=== PATIENT | male | born 1940 | race Caucasian/White ===

== ENCOUNTER 2025-04-13 10:28 | Outpatient (AMB) | payer MEDICARE, SELFPAY ==
--- NOTE | 2025-04-13 10:45 | A.OFFPC_ITS ---
Vital Signs 04/13/25 10:52 Height 5 ft 4.96 in BP 138/52 L Blood Pressure Location Lt brachial Position Sitting Respiration 14 Pulse 73 Pulse Source Pulse Oximeter Temp 97.9 F Temp Source Oral Pulse Oximetry (%) 96 Oxygen Delivery Method Room Air Intake Visit Reasons: continuity of care Intake Note: New patient vistit. Pain in left leg and top of both feet. Symptoms stated in December 2024. Allergies Penicillins Allergy (Unknown, Verified 04/10/25 15:38) Rash Medication List - Last Reconciled 04/13/25 by Alda Tellez PA-C acetaminophen (Tylenol Extra Strength) 1,000 mg PO Q6H PRN albuterol sulfate 90 mcg/actuation (Ventolin HFA) 2 puffs inhalation Q4-6H PRN amlodipine 10 mg PO DAILY aspirin 81 mg PO DAILY atorvastatin (Lipitor) 40 mg PO DAILY chlorthalidone 25 mg PO DAILY cyanocobalamin (vitamin B-12) 1,000 mcg PO DAILY empagliflozin (Jardiance) 10 mg PO DAILY fluticasone furoate 50 mcg/actuation inhalation gabapentin 100 mg PO DAILY losartan 100 mg PO DAILY nitroglycerin 0.4 mg sublingual Q5M PRN omeprazole 40 mg PO DAILY Tobacco use date assessed: 04/13/25 Fall risk assessment: No Falls in past year Last assessed Fall Risk: 04/13/25 Dental Screening Dental Screen Date: 04/13/25 Did you have a dental visit in the last 12 months?: Yes Did you have a dental problem in the last 6 months where you did not have access to dental care?: No Was dental information given to patient?: Patient has dentist HPI continuity of care HPI Details Pt is an 85 y/o male who presents today to establish care. He is transferring from [facility]. Has a significant past medical history of CAD, s/p 2 stents approximately 15 years ago, CKD stage 3, controlled type 2 diabetes, hypertension, hyperlipidemia, lumbar radiculopathy, osteoporosis, peripheral neuropathy, renal cell cancer, thoracic compression fracture. CV: Hx of htn, dyslipidemia and s/p 2 stents. He states that his cholesterol has a has been well managed with the atorvastatin 40 mg. He is on amlodipine 10 mg daily, chlorthalidone 25 mg daily and losartan 100 mg daily. Compliant with aspirin. Has a prescription of nitro to use if needed but has not seen cardiology in many years. He states that he does not need to follow up with them he feels well. He just likes to keep a prescription of nitroglycerin on him in case something ever happened. Endo: well controlled t2dm. He has been a diabetic for 20 years. He is on Jardiance 10 mg and tolerates this well. Does not check blood sugars at home and does not want to. He previously was on metformin but did not like how it made him feel. Nephro: follows with Dr. Garcia for his chronic kidney disease Uro: Dr. Washington in [facility] for hx of right sided kidney cancer dx in 2020 and then in 2022 had treatment. Following in Jul for CT - no notes today regarding this MSK: In November he was shoveling his driveway and breaking up ice when he started develop low back pain radiating down the left leg. He states that since then he has had sharp shooting pains in his lower leg and foot. At night it is worse. It gets a lot better with walking around. Over the last few months he has seen urgent care centers and reports having an MRI of his spine. The MRI was consistent with multi degenerative changes of the lumbar spine most pronounced at L4-L5 with moderate spinal canal stenosis, moderate to severe left and moderate right foraminal stenosis with disc bulge. Patient states that he is supposed to be following with [facility] but has not yet seen them. He was waiting to get the MRI which was just done on March 28. He states that believe it or not he is starting to feel a lot better and not needing as much gabapentin. He is on gabapentin 200 mg at night, 100 mg twice during the day GI: GERD is controlled with the omeprazole 40 mg daily. States that about 15 years ago he had a colonoscopy and decided that he was done getting these. He would be open to a Cologuard. Believes he has also had an endoscopy., [facility], [facility] Surgical History (Updated 04/13/25 @ 11:30 by Alda Tellez PA-C) Status post coronary artery stent placement H/O biopsy of kidney Family History (Updated 04/10/25 @ 15:37 by Radha Colon CMA) Brother Diabetes Other Substance abuse Social History Patient Tobacco Use Status: Former Tobacco user (quit 50 years ago) Cigarette Packs Per Day: 0.5 Years Smoked: 7 Second Hand Smoke Exposure: No service: Yes Current occupational status: retired Cognitive needs: No Hearing needs: Yes Vision needs: No Questionnaire PHQ-9 Over the last 2 weeks, how often have you been bothered by any of the following problems? 1. Little interest or pleasure in doing things: not at all 2. Feeling down, depressed, or hopeless: not at all 3. Trouble falling or staying asleep, or sleeping too much: not at all 4. Feeling tired or having little energy: several days 5. Poor appetite or overeating: several days 6. Feeling bad about yourself - or that you are a failure or have let yourself or your family down: not at all 7. Trouble concentrating on things, such as reading the newspaper or watching television: not at all 8. Moving or speaking so slowly that other people could have noticed. Or the opposite - being so fidgety or restless that you have been moving around a lot more than usual: not at all 9. Thoughts that you would be better off or of hurting yourself in some way: not at all Total score: 2 Depression Screening Interpretation: Negative Depression Screening Done: Yes 63471 - PHQ-9 Billing: Yes Source: Developed by Drs. Barrie Brown, Norma Nagy, Real Druand and colleagues, with an educational felicitas from [employer]. Thrive Questionnaire I am a: Patient What is your living situation today?: I have a steady place to live Within the past 12 months, did the food you bought not last and you didn't have the money to get more?: Never true Within the past 12 months, did you worry whether your food would run out before you got money to buy more?: Never true Do you have trouble paying for medicines?: No Do you have trouble getting transportation to medical appointments?: No Do you have trouble paying your heating and electricity bill?: No Do you have trouble taking care of your child, family member or friend?: No Do you have trouble with day-to-day activities such as bathing, preparing meals, shopping, managing finances, etc.?: No Are you currently unemployed and looking for a job?: No Are you interested in more education?: No Please select the resources that you would like help with: None Currently or been in a relationship where the following occur: No concerns reported THRIVE Score: 0 AUDIT C Alcohol Use Questionnaire (AUDIT-C) 1. How often do you have a drink containing alcohol?: Never Total Score: 0 BYRON-7 AMB Questionnaire BYRON-7 Feeling nervous, anxious, or on edge: 0 = Not at all Not being able to stop or control worryin = Not at all Worrying too much about different things: 0 = Not at all Trouble relaxin = Not at all Being so restless that it is hard to sit still: 0 = Not at all Becoming easily annoyed or irritable: 0 = Not at all Feeling afraid as if something awful might happen: 0 = Not at all Total BYRON-7 score (0-4 normal; 5-9 mild; 10-14 moderate; 15-21 severe): 0 Source: Developed by Drs. Barrie Brown, Norma Nagy, Real Durand and colleagues, with an educational felicitas from [employer]. BYRON-7 Assessment Billing BYRON-7 Assessment Tool: BYRON-7 Assessment 48430 Physical exam (Primary Care) Vital Signs: Last Vital Signs Temp 97.9 F 04/13/25 10:52 Pulse 73 04/13/25 10:52 Resp 14 04/13/25 10:52 BP 138/52 L 04/13/25 10:52 Pulse Ox 96 04/13/25 10:52 Oxygen Delivery Method Room Air 04/13/25 10:52 Tobacco/Smoking Status: Tobacco use Status Tobacco use date assessed 04/13/25 04/13/25 10:58 Patient Tobacco Use Status Former Tobacco user (quit 50 04/13/25 10:58 years ago) PHQ-9: PHQ-9 Score PHQ-9: Total score 2 04/13/25 11:17 Depression Screening Interpretation: Negative Currently or been in a relationship where the following occur: No concerns reported Const Orientation/consciousness: patient oriented x3 HENMT Ears: hearing grossly normal bilaterally Neck Thyroid: Thyroid normal Lymphatic: no lymphadenopathy noted Resp Auscultation: clear to auscultation bilaterally Cardio Rate: regular rate Rhythm: regular rhythm Heart sounds: S1 normal heart sound present and S2 normal heart sound present GI Inspection: Yes normal to inspection Palpation (GI): Soft to palpation and Other GI palpation findings present (nontender, no cva tenderness) Auscultation: normoactive bowel sounds Rectal Exam - Male: Yes deferred Skin General skin exam: no rashes or lesions noted Neuro General: patient oriented x3, gait normal and no focal motor deficits Coding Level of Care Code New Pt Level 4 (93687) Complex EM visit Add On G2211 Diagnoses Lumbar radicular pain M54.16 Type 2 diabetes mellitus E11.9 HLD (hyperlipidemia) E78.5 HTN (hypertension) I10 Additional Codes PHQ-9 - 80949 - PHQ-9 Billing: Yes ([id number]) BYRON-7 Assessment Billing - BYRON-7 Assessment Tool: BYRON-7 Assessment [id number] ([id number]) Assessment & Plan Assessment & Plan (1) Lumbar radicular pain: Code(s): M54.16 - Radiculopathy, lumbar region Category: Medical Plan: On gabapentin. Currently feeling improved. Reviewed MRI with patient Referral to [facility] (2) Type 2 diabetes mellitus: Code(s): E11.9 - Type 2 diabetes mellitus without complications Category: Medical Plan: Labs ordered today He declines testing supplies. We did review signs and symptoms of hyper and hypoglycemia that would require emergent medical treatment. Continue Jardiance (3) HLD (hyperlipidemia): Code(s): E78.5 - Hyperlipidemia, unspecified Category: Medical Plan: Lipids and LFTs ordered. On atorvastatin and tolerating well. (4) HTN (hypertension): Code(s): I10 - Essential (primary) hypertension Category: Medical Plan: WNL. Continue current regimen Orders: Orders Comprehensive Met. Panel Today E11.9 - Type 2 diabetes mellitus without complications, E78.5 - Hyperlipidemia, unspecified, I10 - Essential (primary) hypertension, Z95.5 - Presence of coronary angioplasty implant and graft Complete Blood Count Auto Diff Today E11.9 - Type 2 diabetes mellitus without complications, E78.5 - Hyperlipidemia, unspecified, I10 - Essential (primary) hypertension, Z95.5 - Presence of coronary angioplasty implant and graft Lipid Panel Today E11.9 - Type 2 diabetes mellitus without complications, E78.5 - Hyperlipidemia, unspecified, I10 - Essential (primary) hypertension, Z95.5 - Presence of coronary angioplasty implant and graft TSH reflex Free T4 Today E11.9 - Type 2 diabetes mellitus without complications, E78.5 - Hyperlipidemia, unspecified, I10 - Essential (primary) hypertension, Z95.5 - Presence of coronary angioplasty implant and graft Hemoglobin A1c Today E11.9 - Type 2 diabetes mellitus without complications, E78.5 - Hyperlipidemia, unspecified, I10 - Essential (primary) hypertension, R73.01 - Impaired fasting glucose, Z95.5 - Presence of coronary angioplasty implant and graft Microalbumin, Random (w Creat) Today E11.9 - Type 2 diabetes mellitus without complications, E78.5 - Hyperlipidemia, unspecified, I10 - Essential (primary) hypertension, Z95.5 - Presence of coronary angioplasty implant and graft Prostate Specific Antigen Scr Today E11.9 - Type 2 diabetes mellitus without complications, E78.5 - Hyperlipidemia, unspecified, I10 - Essential (primary) hypertension, Z01.89 - Encounter for other specified special examinations Referrals Physiatry Referral M54.16 - Radiculopathy, lumbar region Cologuard Test E11.9 - Type 2 diabetes mellitus without complications, E78.5 - Hyperlipidemia, unspecified, I10 - Essential (primary) hypertension, Z12.11 - Encounter for screening for malignant neoplasm of colon, Z95.5 - Presence of coronary angioplasty implant and graft
[2025-04-13 10:52] VITALS: BP 138/52; PULSE 73; RESP 14; TEMP 36.6; O2SAT 96
--- OUTSIDE RECORDS SUMMARY | 2025-04-13 11:54 | XMS_ITS | Clinical Summary ---
Author Organization [facility] Address [address] [place] [phone] Phone Care Team Providers Care Recycle Driver Name Role Phone Erick Villar MD Primary Care Provider [phone] Allergies Active Allergy Reactions Criticality Noted Date Comments Penicillin G Other (see comments) 04/20/2024 Penicillins Rash Low 05/06/2021 Medications amLODIPine (NORVASC) 10 MG tablet Take 1 tablet by mouth 1 (one) time each day Active aspirin (Pat Aspirin EC Low Dose) 81 MG EC tablet Take 1 tablet by mouth 1 (one) time each day Active atorvastatin (LIPITOR) 40 MG tablet Take 40 mg by mouth 1 (one) time each day Active chlorthalidone 25 MG tablet Take 1 tablet by mouth 1 (one) time each day Active losartan (COZAAR) 50 MG tablet Take 50 mg by mouth 1 (one) time each day Active omeprazole (PriLOSEC) [address] capsule Take 1 capsule by mouth 1 (one) time each day Active gabapentin (NEURONTIN) 100 MG capsule TAKE 1 TO 2 CAPSULES BY MOUTH 3 TIMES A DAY NEEDED 01/03/2025 Active Jardiance 10 MG tablet every morning 11/16/2024 Activ e cyanocobalamin (VITAMIN B-12) 1000 MCG tablet Take 1,000 mcg by mouth 1 (one) time each day Active Active Problems Problem Noted Date Diagnosed Date Renal cell carcinoma 04/19/2024 Stage 3b chronic kidney disease 05/07/2021 Persistent proteinuria 05/07/2021 Essential (primary) hypertension 05/07/2021 Renal cell carcinoma <Right side> 05/07/2021 Osteoporosis 05/07/2021 Type 2 diabetes mellitus with diabetic nephropat hy 05/07/2021 Chronic kidney disease stage 3 05/06/2021 Diabetes mellitus 05/06/2021 Hypertensive disorder 05/06/2021 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 05/06 Renal disorder due to type 2 diabetes mellitus 0 05/06/2021 Encounters Date Type Department Care Team Description 01/11/2025 3:00 PM EDT Office Visit [facility] [address] [phone] Jah Garcia MD Stage 3 chronic kidney disease, not otherwise specified (HCC) (Primary Dx); Type 2 diabetes mellitus with diabetic nephropathy (HCC); Hypertensive nephrosclerosis; Microalbuminuria from Last 3 Months Family History Medical History Relation Comments Diabetes Sibling 1 Heart disease Sibling 2 Cancer Sibling 3 Breast Relation Status Comments Father Mother Sibling 1 Sibling 2 Sibling 3 Social History Tobacco Use Types Packs/Day Years Used Date Smoking Tobacco: Never Smokeless Tobacco: Never Tobacco Cessation:Counseling Given: Not Answered Alcohol Use Standard Drinks/Week Comments Yes 1 (1 standard drink = 0.6 oz pure alcohol) Alcoholic Drinks/day: 1-2 drinks per day Sex and Gender Information Value Date Recorded Sex Assigned at Not on file Legal Sex Male 4:58 PM EST Gender Identity Not on file Sexual Orientation Not on file Last Filed Vital Signs Vital Sign Reading Time Taken Comments Blood Pressure 125/56 01/11/2025 2:51 PM EDT Pulse 69 01/11/2025 2:51 PM EDT Temperature - - Respiratory Rate - - Oxygen Saturation - - Inhaled Oxygen Concentration - - Weight 72.6 kg (160 lb) 01/11/2025 2:51 PM EDT Height 165.1 cm (5' 5 ) 11/06/2020 12:00 PM EST Body Mass Index 26.63 11/06/2020 12:00 PM EST Plan of Treatment Upcoming Encounters Date Type Department Care Team (Late st Contact Info) Description 07/12/2025 4:15 PM EDT Office Visit [facility] [address] [phone] Jah Garcia MD [address] [phone] Health Maintenance Due Date Last Done Comments Diabetes: Ophthalmology Exam 11/25/2020 Diabetes: Pedal Pulse Checked 11/25/2020 Diabetes: Sensory Foot Exam 11/25/2020 Diabetes: Visual Foot Exam 11/25/2020 Diabetes: Hemoglobin A1C 01/28/2022 10/30/2021 Influenza Vaccine (Season Ended) 2025 07/05/2020, 07/14/2019 Pneumococcal Vaccine: 50+ Years Completed 10/06/2016, 07/23/2016, 06/26/2015 Pneumococcal Vaccine: Peds ( 0 to 5 Years) and At-Risk Patients (6 to 49 Years) Discontinued 10/06/2016, 07/23/2016, 06/26/2015 Hepatitis B Vaccine Aged Out No longe r eligible based on patient's age to complete this topic Procedures Procedure Name Priority Date/Time Associated Diagnosis Comments HEMOGLOBIN A1C Routine 10/30/2021 11:07 AM EST Stage 3b chronic kidney disease (HCC) Persistent proteinuria Essential (primary) hypertension Renal cell carcinoma <Right side> (HCC) Type 2 diabetes mellitus with diabetic nephropathy (HCC) Renal disorder due to type 2 diabetes mellitus <Diabetic nephropathy> (HCC) from Last 3 Months or Most Recently Relevant to Health Maintenance Results * (ABNORMAL) Hemoglobin A1c (10/30/2021 11:07 AM EST) Hemoglobin A1C 6.4(H) (4.0-5.6) % [facility] Comment: MONITORING: In known diabetic patients, hemoglobin A1c targets should be discussed with health care provider. DIAGNOSTIC USE: The [place] Diabetes Association (ADA) and the World Health Organization (WHO) recommend the use of HbA1c to diagnose diabetes using a threshold of 6.5%. Patients who have an HbA1c between 5.7% and 6.4% are considered at increased risk for developing diabetes in the future. CAUTION: Falsely low HbA1c results may be observed in patients with hemolytic anemia, homozygous forms of abnormal hemoglobin (e.g. SS, CC, SC), , recent blood loss or hemoglobin F greater than 7%. Fructosamine may be used as an alternate test in these cases. REFERENCE: ADA: Standards of Medical Care in Diabetes 2020, The Journal of Clinical and Applied Research and Education Volume 43, Supplement 1 Testing performed or reported by [facility], a Service of [facility], [address] [place] [id number] Mo Kerr MD, Warp Placer [facility]# [id number] Blood specimen (specimen) Venous blood / Unknown 10/30/2021 11:07 AM EST 10/30/2021 11:08 AM EST Ryan Azar MD LAB BLOOD ORDERABLES Magaly ledbetter Result [facility] from Last 3 Months or Most Recently Relevant to Health Maintenance Insurance [facility] Medicare [facility] Medicare Care Teams Recycle Driver Relationship Specialty Start Date End Date Erick Villar MD [address] [place] [address] [facility] - General 11/05/20
== END 2025-04-13 11:35 | disposition home or self-care (01) ==
LOC: HO.HMCFM 10:29
PROVIDERS: PCP Physician Assistant; Visit Provider Physician Assistant
DX: M54.16 Radiculopathy, lumbar region (principal); E11.9 Type 2 diabetes mellitus without complications; E78.5 Hyperlipidemia, unspecified; I10 Essential (primary) hypertension

== ENCOUNTER → 2025-04-13 10:28 | Outpatient (BNVA) | payer MEDICARE, SELFPAY | PROVIDERS: PCP Physician Assistant; Visit Provider Physician Assistant | DX: M54.16 Radiculopathy, lumbar region (principal); I10 Essential (primary) hypertension; E11.9 Type 2 diabetes mellitus without complications; E78.5 Hyperlipidemia, unspecified | CPT/HCPCS: 96127; 99202 ==

== ENCOUNTER 2025-06-28 08:04 | Outpatient (REF) | payer MEDICARE, SELFPAY ==
--- OUTSIDE RECORDS SUMMARY | 2025-06-28 08:25 | XMS_ITS | Encounter Summary ---
Author Organization [facility] Address [address] [place] [phone] Phone Care Team Providers Care Medical Coding Auditor Name Role Phone Erick Villar MD Primary Care Provider + Encounter Details Date Type Department Care Team (Late st Contact Info) Description 01/20/2023 Procedure Pass [facility], Ct Scan - [address] [address] Social History Tobacco Use Types Packs/Day Years Used Date Smoking Tobacco: Former Cigarettes 0.5 5 1 644 - 1960 Smokeless Tobacco: Never Alcohol Use Standard Drinks/Week Comments Not Currently 14 (1 standard drink = 0.6 oz pu re alcohol) Intimate Partner Violence Answer Date R ecorded Are you denied basic needs s uch as food, clothing, or medical care? No 01/20/2023 In the past 12 months have y ou been in a relationship with a person who hurts, threatens, or tries to control you? No 01/20/2023 Are you denied basic needs s uch as food, clothing, or medical care? No 01/20/2023 In the past 12 months have y ou been in a relationship with a person who hurts, threatens, or tries to control you? No 01/20/2023 Sex and Gender Information Value Date Recorded Sex Assigned at Not on file Legal Sex Male 10:51 AM EST Gender Identity Not on file Sexual Orientation Not on file documented as of this encounter Plan of Treatment Not on file documented as of this encounter Visit Diagnoses Not on filedocumented in this encounter Care Teams Medical Coding Auditor Relationship Specialty Start Date End Date Erick Villar MD [address] [place] [id number] PCP - General Internal Medicine 11/11/22 documented as of this encounter Additional Source Comments The information contained in this document represents components of the legal health record. It is not the complete legal health record.[facility]
--- OUTSIDE RECORDS SUMMARY | 2025-06-28 08:25 | XMS_ITS | Encounter Summary ---
Author Organization [facility] Address [address] [place] [phone] Phone Care Team Providers Care Certified Pediatric Nurse Practitioner Name Role Phone Erick Villar MD Primary Care Provider + Encounter Details Date Type Department Care Team ([facility] Contact Info) Description 01/20/2023 Procedure Pass [facility] [address] [place] [address] Social History Tobacco Use Types Packs/Day Years Used Date Smoking Tobacco: Former Cigarettes 0.5 5 1 954 - 1959 Smokeless Tobacco: Never Alcohol Use [...] on filedocumented in this encounter Care Teams Certified Pediatric Nurse Practitioner Relationship Specialty Start Date End Date Erick Villar MD [address] [place] [address] [phone] PCP - General Internal Medicine 11/11/22 documented as of this encounter Additional Source Comments The information contained in this document represents components of the legal health record. It is not the complete legal health record.[facility]
--- OUTSIDE RECORDS SUMMARY | 2025-06-28 08:26 | XMS_ITS | Clinical Summary ---
Author Organization [facility] Address [address] [place] [phone] Phone Care Team Providers Care Bullet Slug Casting Machine Operator Name Role Phone Erick Villar MD Primary Care Provider [phone] Allergies Active Allergy Reactions Criticality Noted Date [...] to type 2 diabetes mellitus 0 05/06/2021 Family History Medical History Relation Comments Diabetes [...] Office Visit [facility] [address] [place] [phone] Jah Garcia MD [address] [phone] Health Maintenance Due Date Last Done Comments Diabetes: Ophthalmology Exam 11/25/2020 Diabetes: Pedal Pulse Checked 11/25/2020 Diabetes: Sensory Foot Exam 11/25/2020 Diabetes: Visual Foot Exam 11/25/2020 Diabetes: Hemoglobin A1C 01/28/2022 10/30/2021 Influenza Vaccine (#1) 2025 0, 07/14/2019 Pneumococcal Vaccine: 50+ Years Completed 10/06/2016, [...] AM EST) Hemoglobin A1C 6.4(H) (4.0-5.6) % [facility] Comment: MONITORING: In known diabetic patients, hemoglobin A1c targets should be discussed with health care provider. DIAGNOSTIC USE: The [place] Diabetes Association (ADA) and the World Health [...] Supplement 1 Testing performed or reported by [facility], a Service of [facility], [address] [place] [id number] Mo Kerr MD, Licensed Bondsman [facility]# [id number] Blood specimen (specimen) Venous blood / Unknown 10/30/2021 11:07 AM EST 10/30/2021 11:08 AM EST us Ryan Papamarkakis MD LAB BLOOD ORDERABLES Magaly anatoly Result [facility] from Last 3 Months or Most Recently Relevant to Health Maintenance Insurance [facility] Medicare [facility] Medicare Care Teams Bullet Slug Casting Machine Operator Relationship Specialty Start Date End Date Erick Villar MD [address] [place] [address] PCP - General 11/05/20
--- OUTSIDE RECORDS SUMMARY | 2025-06-28 08:26 | XMS_ITS | Clinical Summary ---
Author Organization [facility] Address [address] [place] [address] Phone Care Team Providers Care Check Grader Name Role Phone Erick Villar MD Primary Care Provider + Allergies Active Allergy Reactions Criticality Noted Date Comments Penicillins 11/21/2022 Medications omeprazole (PRILOSEC) 40 MG capsule Take 40 mg by mouth daily. Active atorvastatin (LIPITOR) 10 MG tablet Take 10 mg by mouth daily. Active amLODIPine (NORVASC) 10 MG tablet Take 10 mg by mouth daily. Active chlorthalidone (HYGROTON) 25 MG tablet Take 25 mg by mouth daily. Active aspirin 81 MG EC tablet Take 81 mg by mouth daily. Active losartan (COZAAR) 50 MG tablet Take 50 mg by mouth daily. Active albuterol 90 mcg/actuation inhaler Inhale 2 puffs into the lungs every 6 (six) hours as needed for wheezing. Active Social History Tobacco Use Types Packs/Day Years Used Date Smoking Tobacco: Former Cigarettes 0.5 5 1 954 - 1959 Smokeless Tobacco: Never Tobacco Cessation:Counseling Given: Not Answered Alcohol Use Standard Drinks/Week Comments Not Currently 14 (1 standard drink = 0.6 oz pu re alcohol) Education Answer Date Recorded Are you interested in more education? Not on pedro e 02/21/2023 Are you concerned about learning? Not on file 02/21/2023 No 02/21/2023 No 02/21/2023 Digital Access Answer Date Recorded No 03/22/2023 No 03/22/2023 No 03/22/2023 Reliable internet access at home? Not on file 03/22/2023 Device with a working camera? Not on file Intimate Partner Violence Answer Date R ecorded [...] Sign Reading Time Taken Comments Blood Pressure 144/57 01/20/2023 3:52 PM EDT Pulse 47 01/20/2023 2:56 PM EDT Temperature 36 C (96.8 F) 01/20/2023 2:00 PM EDT Respiratory Rate 13 01/20/2023 2:56 PM EDT Oxygen Saturation 98% 01/20/2023 2:56 PM EDT Inhaled Oxygen Concentration - - Weight 74.8 kg (165 lb) 01/15/2023 3:58 PM EDT Height 165.1 cm (5' 5 ) 01/15/2023 3:58 PM EDT Body Mass Index 27.46 01/15/2023 3:58 PM EDT Plan of Treatment Health Maintenance Due Date Last Done Comments DEPRESSION SCREENING 1952 RSV VACCINE (1 - 1-dose 75+ series) 2014 CREATININE LEVEL 12/01/2023 12/01/2022 POTASSIUM LEVEL 12/01/2023 12/01/2022 COVID-19 VACCINE ( season) 2024 07/18/2022, 01/23/2022, 07/23/2021, Additional history exists Adult Td,Tdap Booster 11/27/2031 11/27/2021, 010 PNEUMOCOCCAL VACCINES (50+ years) Completed 10/06/2016, 07/23/2016, 06/26/2015 ZOSTER VACCINES Completed 09/01/2019, 02/24, 12/23/2017 HEPATITIS A VACCINES Aged Out No long er eligible based on patient's age to complete this topic HIB VACCINES Aged Out No longer eligi ble based on patient's age to complete this topic MENINGOCOCCAL VACCINES (ACWY) Aged Out No longer eligible based on patient's age to complete this topic MENINGOCOCCAL VACCINES (B) Aged Out N o longer eligible based on patient's age to complete this topic Medical Devices Implanted Type Area Equipment Specialist Device Identifier Shelf Expiration Date Model / Serial / Lot Lens-12/02/2018 Implanted:2018 (Quantity not on file) Lens Stent Implanted:Qty: 2 Stent Heart Procedures Procedure Name Priority Date/Time Associated Diagnosis Comments BASIC METABOLIC PANEL STAT 12/01/2022 9:35 AM EST from Last 3 Months or Most Recently Relevant to Health Maintenance Results * (ABNORMAL) Basic metabolic panel (12/01/2022 9:35 AM EST) SODIUM 140 133 - 146 mmol/L [facility] CHLORIDE 106 96 - 108 mmol/L [facility] POTASSIUM 4.2 3.3 - 5.1 mmol/L [facility] CO2 24 21 - 35 mmol/L [facility] BUN 31(H) 6 - 19 mg/dL [facility] CREATININE 1.60(H) 0.5 - 1.5 mg/dL [facility] GLUCOSE 139(H) 70 - 99 mg/dL [facility] CALCIUM 9.6 8.4 - 10.3 mg/dL [facility] EGFR 42(L) >59 mL/min/1.7 3m2 [facility] Comment:Estimated glomerular filtration rate calculated using the CKD-EPI refit equation. ANION GAP 14 10 - 20 mmol/L [facility] Blood 12/01/2022 9:35 AM EST 12/01/2022 9:43 AM EST us Ermias Chakraborty MD LAB BLOOD ORDERABLES Final Result [facility] [address] [place] [address] from Last 3 Months or Most Recently Relevant to Health Maintenance [place] [address] [place] [address] [place] [address] [place] [address] [place] [address] MEDICARE REPLACEMENT [facility] MEDICARE REPLACEMENT [facility] MEDICARE REPLACEMENT [facility] MEDICARE REPLACEMENT Advance Directives For more information, please contact: [phone] (9AM - 5PM Pamela/[facility], Thursday-Thursday) Documents on File Type Date Recorded Patient Script Coordinator Expl anation Healthcare Proxy 12/02/2022 12:46 PM Care Teams Check Grader Relationship Specialty Start Date End Date Erick Villar MD [address] [place] [phone] PCP - General Internal Medicine 11/11/22 Additional Source Comments The information contained in this document represents components of the legal health record. It is not the complete legal health record.[facility]
--- OUTSIDE RECORDS SUMMARY | 2025-06-28 08:26 | XMS_ITS | Encounter Summary ---
Author Organization [facility] Address [address] [place] [address] Phone Care Team Providers Care Ramp Service Employee Name Role Phone Erick Villar MD Primary Care Provider + Encounter Details Date Type Department Care Team ([facility] st Contact Info) Description 11/12/2022 Procedure Pass [facility] [address] [place] [address] Social History Tobacco Use Types Packs/Day Years Used Date Smoking Tobacco: Former Cigarettes 0.5 5 1 414 1957 Smokeless Tobacco: Never Alcohol Use Standard Drinks/Week Comments Not Currently 14 (1 standard drink = 0.6 oz pu re alcohol) Sex and Gender Information Value Date Recorded Sex Assigned at Not on file Legal Sex Male 10:51 AM EST Gender Identity Not on file Sexual Orientation Not on file documented as of this encounter Plan of Treatment Not on file documented as of this encounter Visit Diagnoses Not on filedocumented in this encounter Care Teams Ramp Service Employee Relationship Specialty Start Date End Date Erick Villar MD [address] [place] [phone] PCP - General Internal Medicine 11/11/22 documented as of this encounter Additional Source Comments The information contained in this document represents components of the legal health record. It is not the complete legal health record.[facility]
--- OUTSIDE RECORDS SUMMARY | 2025-06-28 08:26 | XMS_ITS | Encounter Summary ---
Author Organization [facility] Address [address] [place] [phone] Phone Care Team Providers Care Vendor Management Associate Name Role Phone Erick Villar MD Primary Care Provider + Encounter Details Date Type Department Care Team ([facility] st Contact Info) Description 12/01/2022 Procedure Pass [facility] [address] [place] [address] Social History Tobacco Use Types Packs/Day Years Used Date Smoking Tobacco: Former Cigarettes 0.5 5 1 474 1955 Smokeless Tobacco: Never Alcohol Use Standard Drinks/Week [...] on filedocumented in this encounter Care Teams Vendor Management Associate Relationship Specialty Start Date End Date Erick Villar MD [address] [place] [phone] PCP - General Internal Medicine 11/11/22 documented as of this encounter Additional Source Comments The information contained in this document represents components of the legal health record. It is not the complete legal health record.[facility]
--- OUTSIDE RECORDS SUMMARY | 2025-06-28 08:26 | XMS_ITS | Encounter Summary ---
Author Organization [facility] Address [address] [place] [address] Phone Care Team Providers Care Missile Inspector Preflight Name Role Phone Erick Villar MD Primary Care Provider + Encounter Details Date Type Department Care Team (Late st Contact Info) Description 05/12/2024 Procedure Pass [facility], Ct Scan - [address] [address] Social History Tobacco Use Types Packs/Day Years Used Date Smoking Tobacco: Former Cigarettes 0.5 5 1 744 - 1954 Smokeless Tobacco: Never Alcohol Use Standard Drinks/Week [...] on filedocumented in this encounter Care Teams Missile Inspector Preflight Relationship Specialty Start Date End Date Erick Villar MD [address] [place] [phone] PCP - General Internal Medicine 11/11/22 documented as of this encounter Additional Source Comments The information contained in this document represents components of the legal health record. It is not the complete legal health record.[facility]
--- OUTSIDE RECORDS SUMMARY | 2025-06-28 08:26 | XMS_ITS | Encounter Summary ---
Author Organization [facility] Address [address] [place] [phone] Phone Care Team Providers Care Production Shift Supervisor Name Role Phone Erick Villar MD Primary Care Provider + Encounter Details Date Type Department Care Team ([facility] st Contact Info) Description 01/08/2023 Procedure Pass [facility] [address] [place] [address] Social History Tobacco Use Types Packs/Day Years Used Date Smoking Tobacco: Former Cigarettes 0.5 5 1 394 1955 Smokeless Tobacco: Never Alcohol Use Standard [...] on filedocumented in this encounter Care Teams Production Shift Supervisor Relationship Specialty Start Date End Date Erick Villar MD [address] [place] [phone] PCP - General Internal Medicine 11/11/22 documented as of this encounter Additional Source Comments The information contained in this document represents components of the legal health record. It is not the complete legal health record.[facility]
--- OUTSIDE RECORDS SUMMARY | 2025-06-28 08:26 | XMS_ITS | Encounter Summary ---
Author Organization [facility] Address [address] [place] [phone] Phone Care Team Providers Care Flash Welder Name Role Phone Erick Villar MD Primary Care Provider + Encounter Details Date Type Department Care Team (Late st Contact Info) Description 12/01/2022 Procedure Pass [facility], Ct Scan - [address] [address] Social History Tobacco Use Types Packs/Day Years [...] on filedocumented in this encounter Care Teams Flash Welder Relationship Specialty Start Date End Date Erick Villar MD [address] [place] [phone] PCP - General Internal Medicine 11/11/22 documented as of this encounter Additional Source Comments The information contained in this document represents components of the legal health record. It is not the complete legal health record.[facility]
[2025-06-28 11:28] LABS: MANUAL DIFF FLAG NO
[2025-06-28 11:40] LABS: Hematocrit 35.9 % (42.0-52.0); Hemoglobin 11.9 g/dl (14.0-18.0); Imm Gran Abs Auto 0.03 X10*3/uL (0.00-0.03); Imm Gran Pct Auto 0.4 % (0.0-0.4); Lymphocytes Absolute Auto 1.8 X10*3/uL (1.2-4.9); Mean Corpuscular HGB Conc 33.1 g/dl (31.0-36.0); Mean Corpuscular Hemoglobin 29.8 pg (27.0-33.0); Mean Corpuscular Volume 90.0 fL (80.0-98.0); NRBC Abs Auto 0.000 X10*3/uL (0.0-0.012); NRBC Pct Auto 0.0 /100WBC (0.0-0.2); Platelet Count 311 X10*3/uL (160-400); Red Blood Count 3.99 X10*6/uL (4.60-5.80); White Blood Count 7.8 X10*3/uL (4.8-10.8)
[2025-06-28 11:49] LABS: Hemoglobin A1C 153.5510 umol/L; Total Hemoglobin (HGBA1C) 3121.1266 umol/L
[2025-06-28 12:15] LABS: Anion Gap 13 (12-20); Blood Urea Nitrogen 58 mg/dL (9-16); Calcium 9.5 mg/dL (8.4-10.2); Carbon Dioxide 22 mmol/L (22-29); Chloride 108 mmol/L (96-108); Estimated Glomerular Filt Rate 30; Potassium 4.1 mmol/L (3.3-5.1); Sodium 139 mmol/L (135-145)
[2025-06-28 12:18] LABS: Alanine Aminotransferase 44 U/L (0-40); Albumin Level 4.3 g/dL (3.5-5.0); Alkaline Phosphatase 71 U/L (39-117); Anion Gap 13 (12-20); Aspartate Amino Transferase 22 U/L (5-37); Blood Urea Nitrogen 59 mg/dL (9-16); Calcium 9.5 mg/dL (8.4-10.2); Carbon Dioxide 22 mmol/L (22-29); Chloride 108 mmol/L (96-108); Cholesterol 117 mg/dL (<200); Estimated Glomerular Filt Rate 29; HDL Cholesterol 41 mg/dL (>40); Potassium 4.0 mmol/L (3.3-5.1); Sodium 139 mmol/L (135-145); Total Protein 7.3 g/dL (6.5-8.0); Triglycerides 118 mg/dL (<150)
[2025-06-28 12:24] LABS: Microalbum/Creatinine Ratio Ur 48.3 ug/mg cr (<30)
[2025-06-28 12:30] LABS: Parathyroid Hormone Intact 75.8 pg/mL (8.7-77.1)
== END 2025-06-28 08:05 | disposition home or self-care (01) ==
LOC: HO.WFDLDS 08:04
PROVIDERS: Internal Medicine Nephrology; Visit Provider Physician Assistant
DX: Z01.89 Encounter for other specified special examinations (principal); Z12.5 Encounter for screening for malignant neoplasm of prostate; I12.9 Hypertensive chronic kidney disease with stage 1 through stage 4 chronic kidney disease, or unspecified chronic kidney disease; E11.22 Type 2 diabetes mellitus with diabetic chronic kidney disease; N18.30 Chronic kidney disease, stage 3 unspecified; E78.5 Hyperlipidemia, unspecified; Z95.5 Presence of coronary angioplasty implant and graft
CPT/HCPCS: 36415; 80051; 80053; 80061; 82043; 82306; 82310; 82565; 82570; 83036; 83970; 84153; 84443; 84520; 85025